=== PATIENT | female | born 1940 | race Caucasian/White ===

== ENCOUNTER → 2017-04-07 | Outpatient (CLI) | payer OTHER ==
[2017-04-07 12:13] LABS: BASO % 0.6 %; BASO ABS # 0.04 K/uL (0-0.2); COMPLETE YES; EOS % 3.7 %; HEMATOCRIT 41.4 % (37-47); IG% 0.2 %; LYMPH % 25.3 %; LYMPH ABS # 1.63 K/uL (1.2-3.4); MEAN CORPUSCULAR HEMOGLOBIN 31.4 pg (25-34); MEAN CORPUSCULAR HGB CONC 32.4 g/dl (32-36); MEAN PLATELET VOLUME 9.4 fL (7.4-10.4); MONO % 9.3 %; NEUT % 60.9 %; PLATELET COUNT 220 K/uL (130-400); RED BLOOD COUNT 4.27 M/uL (4.2-5.4); WHITE BLOOD COUNT 6.45 K/uL (4.8-10.8)
[2017-04-07 12:44] LABS: ALT/SGPT 23 U/L (12-78); BLOOD UREA NITROGEN 14 mg/dl (7-18); BUN/CREATININE RATIO 15.6 (10-20); CALCIUM 9.2 mg/dl (8.5-10.1); CARBON DIOXIDE 25 mmol/L (21-32); CHLORIDE 109 mmol/L (98-107); CHOLESTEROL 184 mg/dl (0-200); CREATININE 0.91 mg/dl (0.60-1.20); GLUCOSE 117 mg/dl (70-99); POTASSIUM 3.8 mmol/L (3.5-5.1); SODIUM 140 mmol/L (136-145); TRIGLYCERIDES 216 mg/dl (0-150); VERY LOW DENSITY LIPOPROT CALC 43 mg/dl
[2017-04-07 12:54] LABS: ALB/GLOB RATIO 1.1 (0.9-2); ALKALINE PHOSPHATASE 84 U/L (45-117); AST/SGOT 15 U/L (15-37); CHOLESTEROL/HDL RATIO 3.1; HDL CHOLESTEROL 59 mg/dl; LDL CHOLESTEROL CALCULATED 82 mg/dl
== END | disposition home or self-care (01) ==
LOC: C.LAB 10:41
PROVIDERS: ATTEND Internal Medicine Geriatric Medicine
DX: M19.90 Unspecified osteoarthritis, unspecified site (principal); M85.80 Other specified disorders of bone density and structure, unspecified site; E78.5 Hyperlipidemia, unspecified; R73.9 Hyperglycemia, unspecified; E55.9 Vitamin D deficiency, unspecified

== ENCOUNTER → 2017-04-24 | Outpatient (CLI) | payer OTHER | END | disposition home or self-care (01) | LOC: C.MAMM 14:19 | PROVIDERS: ATTEND Internal Medicine Geriatric Medicine | DX: M85.89 Other specified disorders of bone density and structure, multiple sites (principal) ==

== ENCOUNTER → 2017-08-10 | Outpatient (CLI) | payer OTHER ==
--- NOTE | 2017-08-11 07:52 | MAMMOGRAPHY REPORT ---
BILATERAL DIGITAL SCREENING MAMMOGRAM WITH CAD: 08/10/2017 CLINICAL HISTORY: Routine screening. Patient has no complaints. TECHNIQUE: Current study was also evaluated with a Computer Aided Detection (CAD) system. Bilateral CC and MLO views were obtained. COMPARISON: Comparison is made to exams dated: 08/09/2016 mammogram, 08/06/2015 mammogram, 08/05/2014 m ammogram, 07/11/2013 mammogram, 07/09/2012 mammogram, and 07/06/2011 mammogram - [facility]. BREAST COMPOSITION: The tissue of both breasts is heterogeneously dense, which may obscure small mas ses. FINDINGS: No suspicious masses, calcifications, or areas of architectural distortion are noted in ei ther breast. There has been no significant interval change compared to prior exams. A superficially located circumscribed benign-appearing 10 mm mass is again noted within the right lower inner quadran t, and was marked on the skin with a circular marker. This likely represents a sebaceous/epidermal i nclusion cyst. Scattered bilateral benign-appearing calcifications are stable. IMPRESSION: ACR BI-RADS CATEGORY 2: BENIGN There is no mammographic evidence of malignancy. A 1 year screening mammogram is recommended. The pa tient will receive written notification of the results. Approximately 10% of breast cancers are not detected with mammography. A negative mammographic report should not delay biopsy if a clinically suggestive mass is present. Tari Negron M.D. /:08/10/2017 16:18:52 Supervisor Roving: Wanda ANDREA(Kaykay)([place]), [facility] letter sent: Normal 1/2 BI-RADS Code: ACR BI-RADS Category 2: Benign
== END | disposition home or self-care (01) ==
LOC: C.MAMM 08:22
PROVIDERS: ATTEND Internal Medicine Geriatric Medicine
DX: Z12.31 Encounter for screening mammogram for malignant neoplasm of breast (principal)

== ENCOUNTER → 2018-01-01 | Outpatient (CLI) | payer OTHER ==
--- NOTE | 2018-01-01 14:01 | DIAGNOSTIC IMAGING REPORT ---
LUMBAR SPINE 5 VIEWS CLINICAL HISTORY: Sciatica. FINDINGS: Five views of the lumbar spine are compared to the study dated 03/08/2010. The skeletal structures are osteopenic. There is no radiographic evidence of fracture or malalignment. Vertebral body height is maintained throughout the lumbar spine. Alignment is preserved. There is mild lumbar dextrocurvature centered at L4. Anterior and lateral marginal osteophytes are seen throughout. The transverse and spinous processes appear intact. There is no evidence of spondylolysis. Multilevel facet arthropathy is noted in the lower lumbar region. There is mild disc space narrowing seen throughout the lumbar spine. Endplate sclerosis is noted at L2-L3 and L4-L5. The bony pelvis is intact as visualized. Sclerotic change is noted in the sacroiliac joints. Advanced arthritic change is present in the hips, right greater than left. There is a nonobstructed abdominal bowel gas pattern. Mild atherosclerotic calcification is noted in the abdominal aorta. IMPRESSION: 1. No acute bony abnormality is seen involving the lumbar spine. 2. Osteopenia with lumbosacral spondylosis and scoliosis as above. Dictated: 01/01/2018 1:54 PM Transcribed: 01/01/2018 2:01 PM Rory Electronically signed by: Zachary Fang M.D. 01/01/2018 2:02 PM Dictated Date/Time: 01/01/2018 1:54 PM
== END | disposition home or self-care (01) ==
LOC: C.RADBC 13:11
PROVIDERS: ATTEND Internal Medicine Geriatric Medicine
DX: M54.30 Sciatica, unspecified side (principal); M85.88 Other specified disorders of bone density and structure, other site

== ENCOUNTER → 2018-01-11 | Outpatient (CLI) | payer OTHER ==
--- NOTE | 2018-01-11 13:46 | DIAGNOSTIC IMAGING REPORT ---
L PELVIS/UNILATERAL HIP 1 VIEW HISTORY: 77 years-old Female GROIN PAIN UNSPECIFIED LATERALITY acute left hip and groin pain COMPARISON: Lumbar spine radiographs 01/01/2018 TECHNIQUE: Portable AP view of the pelvis with 2 views of the left hip FINDINGS: Degenerative changes are seen within the pubic symphysis and SI joints. Moderate degenerative changes about the bilateral femoral acetabular joints. Bones appear mildly demineralized. No acute fracture or dislocation. IMPRESSION: No acute fracture or dislocation. The above report was generated using voice recognition software. It may contain grammatical, syntax or spelling errors. Electronically signed by: Job Meadows M.D. 01/11/2018 1:45 PM Dictated Date/Time: 01/11/2018 1:43 PM
== END | disposition home or self-care (01) ==
LOC: C.RAD1850 12:42
PROVIDERS: ATTEND Nurse Practitioner Adult Health
DX: R10.30 Lower abdominal pain, unspecified (principal)

== ENCOUNTER → 2018-01-11 | Outpatient (CLI) | payer OTHER | END | disposition home or self-care (01) | LOC: C.LABSPEC 12:26 | PROVIDERS: ATTEND Nurse Practitioner Adult Health | DX: N61.1 Abscess of the breast and nipple (principal) ==

== ENCOUNTER 2023-07-31 05:10 | Inpatient (IN) ==
--- NOTE | 2023-06-29 14:04 | PAT Medication Instructions ---
Medication Instructions Date of Service June 29, 2023 Home Medications Medication Instructions Recorded simvastatin 20 mg tablet 20 mg PO QPM #90 tabs 08/24/22 gabapentin 100 mg capsule 100 mg PO BID #60 caps 05/25/23 acetaminophen 500 mg tablet (Tylenol Extra Strength) 1,000 mg PO BID PRN simvastatin 20 mg tablet 20 mg PO QPM gabapentin 100 mg capsule 100 mg PO BID ibuprofen 200 mg tablet (Advil) 200 mg PO Q6H PRN ASK your surgeon for instructions ibuprofen 200 mg tablet (Advil) 200 mg PO Q6H PRN Take morning of surgery With a small sip of water, OTHERWISE NOTHING TO EAT OR DRINK AFTER MIDNIGHT: acetaminophen 500 mg tablet (Tylenol Extra Strength) 1,000 mg PO BID PRN(if needed) gabapentin 100 mg capsule 100 mg PO BID Take evening before surgery acetaminophen 500 mg tablet (Tylenol Extra Strength) 1,000 mg PO BID PRN(if needed) simvastatin 20 mg tablet 20 mg PO QPM gabapentin 100 mg capsule 100 mg PO BID Other Notes If you have any questions please call us at [phone] or [phone] or [phone] or [phone]
--- NOTE | 2023-07-03 13:28 | Anesthesiology Consultation ---
Date of Service July 03, 2023 Assessment & Plan (1) Encounter for pre-operative examination: - ER [facility] 07/02/23: "...evaluation of swelling on her upper chest wall on the inside of her right breast. History and physical exam appear to be consistent with infection. The patient was treated with incision and drainage. This could be more consistent with an infected cyst or possibly an abscess. Cultures were sent. I discussed the patient's condition with her. She was encouraged to remove the packing in 2 days. She was also started on a short course of an antibiotic..." Surgeon's office made aware. - Outpatient joint assessment: Patient is currently scheduled for inpatient pathway. If re-evaluated and patient/surgeon requests outpatient pathway, patient is not recommended candidate for outpatient joint program from anesthesia standpoint. Chart Review Chart Review: Acceptable Risk for Surgery and Patient seen in Pre Admission Testing Teaching & Discussion Pre-Anesthesia Teaching/Discussion Notes: Instructed NPO after midnight before surgery, except medications with 15 cc of water. Medication instructions provided according to the PAT guidelines. History Surgery Operation Date: 07/31/23 10:40 Proposed Procedures p Right Total Hip Arthroplasty - Indra Sood MD Height/Weight Height: 5 ft 7 in Weight: 69.8 kg Allergies Allergy/AdvReac Type Severity Reaction Status Date / Time No Known Allergies Allergy Unknown Verified 06/29/23 12:21 Medications Home Medications Medication Instructions Recorded Confirmed Last Taken acetaminophen 500 mg tablet 1,000 mg PO BID PRN Pain 04/10/21 06/29/23 10/12/21 (Tylenol Extra Strength) simvastatin 20 mg tablet 20 mg PO QPM #90 tabs 08/24/22 06/29/23 Unknown gabapentin 100 mg capsule 100 mg PO BID #60 caps 05/25/23 06/29/23 Unknown ibuprofen 200 mg tablet (Advil) 200 mg PO Q6H PRN Pain 05/25/23 06/29/23 Unknown amoxicillin 875 mg-potassium 1 tab PO BID #14 tabs 07/02/23 Unknown clavulanate 125 mg tablet Past Medical History Medical History Abscess of breast, right Chronic low back pain Hyperlipidemia Osteopenia Pre-diabetes Patient denies h/o stroke, seizures, heart attack, heart failure, HTN, blood clots/DVTs or blood transfusions. Exercise / Class Metabolic Activity III < 4 Walking/Shop/Light housework (denies chest discomfort or shortness of breath with usual activities) Past Family History Family History Brother Diabetes Father Heart disease Mother Pulmonary embolism Other No family history of adverse response to anesthesia Denies family history of Colon cancer Ovarian cancer Prostate cancer Myocardial infarction Breast cancer Past Surgical History Surgical History History of cataract surgery History of cholecystectomy History of colonoscopy History of esophagogastroduodenoscopy (EGD) History of hysterectomy History of incision and drainage History of tooth extraction Past Anesthesia History No Hx of Anesthesia Complications and No Family Hx of Anesthesia Complications History of PONV No Hx of PONV and No Hx of Motion Sickness Social History Smoking Status: Former smoker tobacco type: cigarettes Do You Dip or Chew Tobacco: No Smoking End Date: 2011 Hx Alcohol Use: Yes Alcohol type: wine alcohol intake frequency: a few times a week Hx Substance Use: No substance use type: does not use Review of Systems Patient denies chest pain, shortness of breath, dyspnea on exertion, snoring, witnessed apneas, reflux, fever, chills, cough, wheezing, or palpitations. Physical Exam Vital Signs Vitals BP 137/87 P 75 TEMP 97.5 SP02 99% on RA RESP 17 Physical Patient resting comfortably in chair in no acute distress, alert and oriented, responding appropriately throughout visit Full cervical extension range of motion without pain TMD 3.5 finger breadths Mallampati Score 1 Dentition: intact, denies chipped or loose teeth, caps/crowns, implants or bridges Lungs: normal respiratory effort. Good air movement, clear throughout to auscultation, no adventitious breath sounds Cardiac: regular rate and rhythm, no murmurs noted Carotid arteries: negative bruit bilat Lab Results Anesthesia Preop Results Results Anesthesia Widget: WBC 6.60 K/ul (4.8-10.8) 07/03/23 Hgb 12.9 g/dl (12.0-16.0) 07/03/23 Hct 37.7 % (37.0-47.0) 07/03/23 Plt 227 K/uL (130-400) 07/03/23 Na 139 mmol/L (136-145) 07/03/23 K 4.0 mmol/L (3.5-5.1) 07/03/23 Cl 108 mmol/L (98-107) H 07/03/23 CO2 24 mmol/L (21-32) 07/03/23 BUN 24 mg/dl (6-23) H 07/03/23 Creat 0.82 mg/dl (0.6-1.2) 07/03/23 Glucose Level 160 mg/dl (70-99(Fasting)) H 07/03/23 PT 10.5 Seconds (9.0-12.0) 07/03/23 PTT 27.4 Seconds (21.0-31.0) 07/03/23 INR 1.0 (0.9-1.1) 07/03/23 Blood Type O Positive 07/03/23 Antibody Screen NEGATIVE 07/03/23 Testing Electrocardiogram Date: 07/03/23 Sinus rhythm with occasional PVCs, rate 74 bpm Low voltage QRS Chest X-Ray Date: 07/03/23 Cardiac mediastinal and hilar silhouettes are within normal limits. Hyperinflation with diaphragmatic flattening. Unchanged mild right hemidiaphragmatic elevation. No pneumothorax, pleural effusion, airspace consolidation or pulmonary edema. Bones of the chest appear grossly intact. No acute process.
[2023-07-31] MEDS ORDERED: CeleBREX 200 MG CAP PO SCH (06:00)
[2023-07-31] MEDS ORDERED: dexAMETHasone**PF** 10 MG/ML VIAL IV SCH (06:00)
[2023-07-31] MEDS ORDERED: TRANEXAMIC ACID 1,000 MG **IV Pre-op IV SCH (06:00)
[2023-07-31] MEDS ORDERED: ceFAZolin 2000MG 2,000 MG/15 ML SYR IV SCH (06:00)
[2023-07-31] MEDS ORDERED: LR 15ML/HR IV SCH (06:00)
[2023-07-31] MEDS ORDERED: FAMOTIDINE 20 MG TAB PO SCH (06:00)
[2023-07-31] MEDS ORDERED: METOCLOPRAMIDE HCL 10 MG TABLET PO SCH (06:00)
[2023-07-31] MEDS ORDERED: LR 60ML/HR IV SCH (06:00)
[2023-07-31] MEDS ORDERED: ACETAMINOPHEN 500 MG TAB PO SCH (06:00)
[2023-07-31] MEDS ORDERED: ROPIVACAINE 0.5% 5 MG/ML 30 ML VIAL ONE (06:19)
[2023-07-31] MEDS ORDERED: fentaNYL citrate PF 100 MCG/2 ML VIAL ONE (06:32)
[2023-07-31] MEDS ORDERED: BUPIVACAINE/EPINEPHRINE 0.5% MPF 1:200,000 30 ML VIAL ONE (06:32)
[2023-07-31] MEDS ORDERED: MIDAZOLAM HCL 1 MG/ML 2ML VIAL ONE (06:33)
[2023-07-31] MEDS ORDERED: ePHEDrine sulfate 50 MG/ML AMP IV PRN (06:42)
[2023-07-31] MEDS ORDERED: fentaNYL citrate PF 100 MCG/2 ML VIAL IV PRN (06:42)
[2023-07-31] MEDS ORDERED: ATROPINE SULFATE 0.1 MG/ML 10ML SYR IV PRN (06:42)
[2023-07-31] MEDS ORDERED: HYDROmorphone INJ 1 MG/ML SYRINGE IV PRN (06:42)
[2023-07-31] MEDS ORDERED: ONDANSETRON INJ 2 MG/ML 2 ML VIAL IV PRN ×2 (06:42→10:02)
--- NOTE | 2023-07-31 06:52 | History & Physical Bridge Note ---
Date of Service July 31, 2023 History & Physical Bridge Note I have examined the patient, reviewed the History & Physical and in the interval since the performance of the History & Physical I have noted the following changes of clinical significance: no changes noted
[2023-07-31] MEDS ORDERED: PROPOFOL IV EMULSION 10 MG/ML 20 ML VIAL IV ONE ×2 (07:28→08:16)
[2023-07-31] MEDS ORDERED: PHENYLEPHRINE HCL 10 MG/ML VIAL ONE (07:28)
[2023-07-31] MEDS ORDERED: LIDOCAINE 2% 2 ML VIAL/AMP(20MG/ML) INFIL ONE (07:28)
--- NOTE | 2023-07-31 08:49 | Operative Report ---
PG Post Operative Report Pre & Post Diagnosis Operation Date: 07/31/23 07:00 Pre-Op Diagnosis: Arthritis of right hip Post-Op Diagnosis: Arthritis of right hip I identified the patient and participated in the time-out.: Yes Procedure Operation Date: 07/31/23 07:00 Actual Procedures p Right hybrid total Hip Arthroplasty, Cemented(Right) - Indra Sood MD Surgeon Indra Sood MD Yarn Wrapper Gabino Negron PA-C Estimated Blood Loss 100 Findings Consistent with Post-Op Diagnosis Operative findings were advanced right hip DJD. She had grade 4 [id number] disease of the femoral head and acetabulum. She had a protrusio kind of appearance to the acetabulum. Significant acetabular osteophytes circumferentially. Moderate-sized joint effusion. Specimens Right femoral head sent for pathology Anesthesia Type Spinal MAC Complications none Disposition Accompanied Patient To Recovery: No Indications Patient is an 83-year-old very active independent female whose had about a year history of increasing right hip pain discomfort is gotten secondarily worse over the past 6 months. X-rays show progressive hip arthritis. She failed all conservative measures. She elected proceed with total hip arthroplasty. Description of Procedure Operative implants consist of: 1. Biomet G7 size 52 mm acetabular shell. 2. [place] hole eliminator. 3. 6.5 cancellous acetabular screws 1 at 35 mm in length and 1 to 20 mm length. 4. Highly cross-linked polyethylene liner with a 52 mm outer diameter, 36 mm inner diam with a de la rosa placed inferior and posterior. 5. DePuy [place] size 3 high offset femoral stem. 6. +5/36 mm metal articular ball. The patient was taken the operating, identified, and placed on the operating table supine position but all contractors were appropriately padded. IV antibiotics tried by anesthesia team. Spinal anesthetic and been implemented holding area. Dutta catheter was placed in sterile fashion. The patient then placed in the left lateral decubitus position. An axillary roll was placed. A Stulberg hip positioner was used for positioning. The right hip and leg were then prepped and draped in usual sterile fashion. A posterior lateral approach to the right hip was then performed to a curvilinear incision centered over the greater trochanter. Sharp dissection through subcutaneous tissue down to the IT band gluteal fascia. The IT band gluteal fascia were incised longitudinally in line with skin incision. The underlying greater bursa was excised. The piriformis and external rotators along with hip posterior hip joint capsule were then released from the posterior aspect of the hip as a single layer. Great care was taken throughout the procedure protect the sciatic nerve at all times. The hip was internally rotated and dislocated. A femoral neck osteotomy cut was made with Final Cut about 14 mm above the lesser trochanter. Femoral head was removed and sent for pathology. The femur was retracted anteriorly. Attention drawn the acetabulum. The acetabular labrum was excised. The pulmonary fat was excised. Sequential reaming of the acetabulum was then performed again with a size 43 and progressin g up to 51. I reamed a little bit with a 52 reamer. We then placed a 52 mm acetabular shell in about 40 degrees lateral opening and 20 degrees of anteversion. Was fixed with two 6.5 cancellous acetabular screws. Trial liner was placed. This some osteophytes were taken off inferiorly and anteriorly. Attention drawn the femur. The proximal femur then was cookie-cutter followed by canal finder and lateralizing reamer. I then broached beginning with size 1 and progressing up to 3. We had trouble even get the 3 down. We trialed the hip and it seemed appropriate as far as soft tissue stability, leg lengths. I elect to place these implants. Nupathe all trial implants were removed. A [place] hole eliminator was placed. Highly cross-linked polyethylene liner with a de la rosa placed inferior and posterior were then impacted in position. A small cement restrictor was placed distally. The canal was irrigated extensively and cleaned and dried. A double batch [place] G cement was mixed and injected in the canal and a size 3 high offset [place] cemented femoral stem was placed. All extraneous cement was removed. Once the cement hardened a +5/36 mm metal articular ball was placed. Hip was located and once again found to be stable. Attention drawn toward closing. The wounds irrigated cosigns with pulsatile lavage solution. We did inject locally with 50 cc of half percent Marcaine with epinephrine. The posterior capsule and posterior hip musculature was then repaired through drills in the posterior trochanter as a single layer with #2 Tycron suture. The IT band gluteal fascia then closed in 1 PDS suture running fashion for subcutaneous tissues then closed with 2 Dexon suture in a buried interrupted fashion. Skin was closed skin awais. Leg was then cleaned and dried and sterile dressed with Xeroform, 4 x 4's, ABD pad and foam tape was applied. Patient then transferred to the recovery room in stable condition. Patient tolerated procedure well and there were no complications. Gabino Negron, my physician patient care nursing assistant, was present for the entire procedure. His assistance was essential and required for appropriate patient positioning, prepping and draping, surgical exposure, performing the technical details of the operation, placement the implants, closure of the wound, and placement of the sterile bandage. I attest to the content of the Intraoperative Record and any orders documented therein. Any exceptions are noted below.
--- NOTE | 2023-07-31 09:22 | Anesthesiology Progress Note ---
Date of Service July 31, 2023 Anesthesia Post Procedure Vital Signs Vital Signs: Temp Pulse Pulse Resp BP Pulse Ox O2 Del Method 07/31/23 09:10 66 17 147/57 H 96 Nasal Cannula 07/31/23 09:00 36.5 C 67 19 130/54 L 99 Nasal Cannula 07/31/23 08:50 74 20 136/56 L 91 Room Air 07/31/23 08:40 70 14 137/54 L 97 Oxymask 07/31/23 08:32 36.2 C L 81 16 145/76 H 95 Oxymask 07/31/23 05:36 36.6 C 81 18 150/73 H 96 Room Air O2 Flow Rate 07/31/23 09:10 3 07/31/23 09:00 3 07/31/23 08:50 07/31/23 08:40 4 07/31/23 08:32 6 07/31/23 05:36 Pain Intensity Right Hip: Pain Intensity: 8 Transfer of Care Handoff Completed per policy Notes Mental Status: alert / awake / arousable and participated in evaluation Patient Amnestic to Procedure: Yes Nausea / Vomiting: adequately controlled Pain: adequately controlled Airway Patency, RR, SpO2: stable & adequate BP & HR: stable & adequate Hydration State: stable & adequate Anesthetic Complications: no major complications apparent and Pt Satisfied with anesthetic care
--- NOTE | 2023-07-31 09:44 | XRay Report ---
AP PELVIS, CROSSTABLE LATERAL RIGHT HIP History: Right total hip arthroplasty. Degenerative arthritis. Postop. FINDINGS: The patient is status post a right total hip arthroplasty. The hardware is intact. No fract ure or dislocation. Skin awais are in place. IMPRESSION: Right total hip arthroplasty. No evidence for hardware complication ACT 112: Negative or not required by law. Electronically signed by: Ruslan Chou M.D. 07/31/2023 9:43 AM
[2023-07-31] MEDS ORDERED: NALOXONE HCL 0.4 MG/1 ML VIAL/CARP IV PRN (10:02)
[2023-07-31] MEDS ORDERED: bisacodyL 10 MG SUPP PR PRN (10:02)
[2023-07-31] MEDS ORDERED: ALUMINUM/MAGNESIUM SUSP 30 ML UDC PO PRN (10:02)
[2023-07-31] MEDS ORDERED: traMADol HCL 50 MG TABLET PO PRN (10:02)
[2023-07-31] MEDS ORDERED: MAGNESIUM HYDROXIDE SUSP 30 ML UDC PO PRN (10:02)
[2023-07-31] MEDS ORDERED: METOCLOPRAMIDE HCL INJ 5 MG/ML 2 ML VIAL IV PRN (10:02)
[2023-07-31] MEDS ORDERED: HYDROmorphone INJ 0.5 MG/0.5 ML SYR IV PRN (10:02)
[2023-07-31] MEDS ORDERED: GABAPENTIN 100 MG CAP PO SCH ×3 (10:30→21:00)
[2023-07-31] MEDS: SODIUM CHLORIDE 0.9% 1,000 ML IV SCH ×2 (10:31→20:29)
[2023-07-31] MEDS: ASPIRIN 81 MG ECTAB PO SCH ×2 (11:07→20:32)
[2023-07-31] MEDS: MULTIVITAMIN TAB PO SCH (11:07)
[2023-07-31] MEDS: DOCUSATE SODIUM 100 MG CAP PO SCH ×2 (11:08→20:33)
[2023-07-31] MEDS: ACETAMINOPHEN 500 MG TAB PO SCH ×2 (14:49→23:01)
[2023-07-31] MEDS: ceFAZolin 1000MG 1,000 MG/7.5 ML SYR IV SCH ×2 (14:49→22:16)
[2023-07-31] MEDS ORDERED: TRANEXAMIC ACID / 0.7% NACL 1,000 MG/100 ML BAG IV SCH (15:00)
[2023-07-31] MEDS: ASCORBIC ACID 500 MG TAB PO SCH (16:41)
[2023-07-31] MEDS: KETOROLAC TROMETHAMINE 15 MG/ML VIAL IV SCH (18:25)
[2023-07-31] MEDS ORDERED: SIMVASTATIN 20 MG TAB PO SCH (21:00)
[2023-07-31] MEDS ORDERED: SENNA 8.6 MG TAB PO SCH (21:00)
[2023-08-01] MEDS: KETOROLAC TROMETHAMINE 15 MG/ML VIAL IV SCH ×2 (00:30→06:02)
[2023-08-01] MEDS: ACETAMINOPHEN 500 MG TAB PO SCH (06:02)
[2023-08-01 06:52] LABS: Basophils # (auto) 0.02 K/uL (0.00-0.20); Basophils % (auto) 0.2 %; Eosinophils # (auto) 0.01 K/uL (0.00-0.50); Eosinophils % (auto) 0.1 %; Hematocrit (blood only) 30.8 % (37.0-47.0); Hemoglobin 10.5 g/dl (12.0-16.0); Immature Granulocytes # (auto) 0.03 K/uL (0.01-0.20); Immature Granulocytes % (auto) 0.3 %; Lymphocytes % (auto) 18.4 %; Mean Corpuscular Hemoglobin 32.9 pg (25.0-34.0); Mean Corpuscular Hgb Conc 34.1 g/dL (32.0-36.0); Mean Corpuscular Volume 96.6 fL (80.0-100.0); Mean Platelet Volume 9.8 fL (9.4-12.4); Monocytes # (auto) 0.78 K/uL (0.11-0.59); Monocytes % (auto) 8.4 %; Neutrophils # (auto) 6.72 K/uL (1.40-6.50); Neutrophils % (auto) 72.6 %; Platelet Count 215 K/uL (130-400); RDW Coefficient of Variation 11.6 % (11.5-14.5); RDW Standard Deviation 41.3 fL (36.4-46.3); Red Blood Count 3.19 M/uL (4.20-5.40); White Blood Count 9.26 K/ul (4.8-10.8)
[2023-08-01 07:00] LABS: BUN Creatinine Ratio 25.3 (10-20); Calcium 8.7 mg/dl (8.6-10.3); Creatinine Clr Calc Pharmacy 49.1 ml/min; Est GFR (African American) 75.1 ml/min; Est GFR (Non-African American) 64.8 ml/min; Potassium 4.7 mmol/L (3.5-5.1)
[2023-08-01] MEDS ORDERED: dexAMETHasone 10 MG in SYRINGE 0 ML IV SCH (08:00)
[2023-08-01] MEDS: ASPIRIN 81 MG ECTAB PO SCH (08:18)
[2023-08-01] MEDS: DOCUSATE SODIUM 100 MG CAP PO SCH (08:18)
[2023-08-01] MEDS: ASCORBIC ACID 500 MG TAB PO SCH (08:18)
[2023-08-01] MEDS: MULTIVITAMIN TAB PO SCH (08:19)
--- NOTE | 2023-08-01 11:23 | Surgery Progress Note ---
Date of Service August 01, 2023 Assessment & Plan (1) Status post total hip replacement, right: Plan: 83-year-old female postop day 1 from a right hybrid total hip replacement. She is doing quite well. Medically she is stable. Hips located. She is neurologically intact. Hoping to go home. Plan: 1. DVT prophylaxis including thigh-high teds, SCDs, aspirin twice a day. 2. PT OT. Weight-bear as tolerated. Right total hip protocol. 3. Pain control doing okay with current pain regimen.. 4. Disposition she is decided that she wants to go home with some home health and her daughter's assistance. Initial plan was made to go to rehab but she is changed that. We will see how she does in therapy today. Admission and Anticipated Discharge Date Admission Date: July 31, 2023 Subjective 82-year-old female postop day 1 from a right total hip replacement. She is doing quite well. She will much better this morning. She is got up and walked around with a walker. No chest pain or shortness of breath. Not feeling dizzy or lightheaded. Physical Exam Physical Exam: Physical examination was a pleasant elderly female. Sitting up in bedside chair looks completely comfortable. Examination of the right hip reveals dressing clean dry and intact. Thigh soft and supple. Leg lengths are equal. She is neurologically intact patient can dorsiflex and plantarflex her foot appropriately. Respiratory: normal respiratory effort, lungs clear to auscultation Cardiovascular: RRR, no murmur, no edema Gastrointestinal (Abdomen): normal bowel sounds, soft, nontender, no hepatosplenomegaly Results & Data Vital Signs (Past 12 Hours) Vital Signs Temp Pulse Resp BP Pulse Ox O2 Del Method 08/01/23 07:11 36.6 C 56 L 16 131/65 96 Room Air 08/01/23 03:08 36.7 C 62 16 120/64 97 Room Air Laboratory Results Hemoglobin is 10.5 hematocrit is 30.8. Electrolytes are stable. PG Care Time/CCT Total # of Minutes Spent Total Time Spent with Patient: Total time spent is greater than 50% in coordination of care (as documented) at patient's floor/unit and/or counseling patient: Coding Level of Care Code 94508 Post Operative Follow-Up Diagnoses Status post total hip replacement, right Z96.641
--- NOTE | 2023-08-02 14:21 | Discharge Summary ---
Date of Service August 02, 2023 Discharge Data Procedures Performed Operation Date: 07/31/23 07:00 Actual Procedures p Right Total Hip Arthroplasty, Cemented(Right) - Indra Sood MD Hospital Course (1) Status post total hip replacement, right: This is a 83 year old patient admitted on 07/31/23 and underwent total hip arthroplasty. She tolerated the procedure well and there were no complications. Transferred to the PACU post op and later to the orthopedic floor for further care. She was given ancef for antibiotic prophylaxis. She was also given NIR stockings, SCDs, and aspirin for DVT prophylaxis. Hemoglobin, hematocrit, and vital signs were monitored during her hospital stay and remained stable. Did not require any blood transfusions. There were no complications during her hospital stay. By post op day #1 the patient was tolerating a regular diet, pain was reasonably controlled with oral pain medicine, and she was participating in physical therapy. On post op day #1 the patient was discharged home and set up with home health care. She was given printed discharge instructions including prescriptions for extra strength tylenol, aspirin, zofran, senokot, and tramadol. Continue hip precautions. Continue physical therapy, weight bearing as tolerated. Continue NIR stockings. Follow up approximately 2 weeks post op or sooner if there are problems or concerns. Coding Level of Care Code None Diagnoses Status post total hip replacement, right Z96.641
== END 2023-08-01 13:14 | disposition home health service (06) | DRG 470 ==
LOC: ASU 05:10 → 3E 08:42